=== PATIENT | female | born 1995 | race Caucasian/White ===

== ENCOUNTER 2021-01-16 07:46 | Outpatient (CLI) | payer OTHER | END 2021-01-16 07:47 | disposition home or self-care (01) | LOC: CSHULT 07:46 | PROVIDERS: ATTEND Physician Assistant Medical | DX: Z86.010 Personal history of colon polyps (principal); K21.9 Gastro-esophageal reflux disease without esophagitis; R10.13 Epigastric pain | CPT/HCPCS: 93975 ==